=== PATIENT | female | born 1970 | race Caucasian/White ===

== ENCOUNTER 2018-03-11 12:02 | Day surgery (SDC) | payer OTHER ==
[2018-03-11] MEDS ORDERED: LIDOCAINE 2% (SDV) 5 ML INJ (13:54)
[2018-03-11] MEDS ORDERED: PROPOFOL 60 ML (13:54)
== END 2018-03-11 14:49 | disposition home or self-care (01) ==
LOC: GIL 12:02
DX: K29.30 Chronic superficial gastritis without bleeding (principal); K52.9 Noninfective gastroenteritis and colitis, unspecified
CPT/HCPCS: 43239; 84703; 88305; 88312